=== PATIENT | female | born 1940 | race Caucasian/White ===

== ENCOUNTER 2016-10-23 16:27 | Emergency (ER) | payer OTHER ==
[~2016-10-23 16:27] MED LIST: LORazepam 2 MG/ML INJ IVP ONE
[2016-10-23] MEDS ORDERED: ONDANSETRON DISINTEGRATING 4 MG TAB PO ONE (16:38)
[2016-10-23] MEDS ORDERED: ONDANSETRON 4 MG/2 ML VIAL ONE ×2 (16:42→17:03)
[2016-10-23] MEDS ORDERED: MECLIZINE HCL 25 MG TAB ONE (17:03)
--- NOTE | 2016-10-23 17:04 | EDPHY ---
H & P Time Seen by Provider: 10/23/16 16:44 HPI/ROS: CHIEF COMPLAINT: vertigo HISTORY OF PRESENT ILLNESS: Patient is a 75-year-old female with a previous history of vertigo who presents to the emergency department with sudden onset dizziness. The patient was at a dance concert. She stated the room was warm. She felt flushed. She went to the car and had sudden onset dizziness. She felt as though the view was spinning. It was worse with head movement. She states I have trouble with my right ear. She has had previous episodes of vertigo. She had been seen approximately 6 months ago in [place] and had a negative MRI. She has ongoing tenderness that is gradually worsening in her right ear. She has associated nausea and vomiting today with her head movement and dizziness. She denies abdominal pain. No chest pain or shortness of breath. No fevers or chills. No recent trauma. REVIEW OF SYSTEMS: My complete review of systems is negative except as mentioned in the HPI. Past Medical/Surgical History: Includes vertigo, kidney disease Past surgical history: Noncontributory Social history: The patient is from [place]. She does not smoke. Smoking Status: Never smoked Physical Exam: 36.4, 140/89, 90, 18, 90% on room air GENERAL: Mild acute distress from nausea, alert. HEENT: Eyes normal to inspection, normal pharynx, no signs of dehydration. Horizontal nystagmus. TMs negative bilaterally. NECK: No thyromegaly, no lymphadenopathy, supple. RESPIRATORY: Clear to auscultation bilaterally, no rales, rhonchi or wheezing. CVS: Regular rate and rhythm, no rubs, murmurs, or gallops. ABDOMEN: Soft, nontender, nondistended, no organomegaly. BACK: Normal to inspection, no CVA tenderness. SKIN: Normal color, no rash, warm, dry. No pallor. EXTREMITIES: No pedal edema, no calf tenderness, no Homans sign or cords, no joint swelling. NEURO/PSYCH: Higher functions: Alert and Oriented x3. Normal speech and cognition. Normal mood and affect. Cranial nerves: Normal as tested. Cerebellar: Normal as tested. Good finger to nose, good [id number], normal gait. Peripheral exam: Normal motor exam. Normal sensation. Normal reflexes. Constitutional: Initial Vital Signs Temperature (C) 36.4 C 10/23/16 16:30 Heart Rate 90 10/23/16 16:30 Respiratory Rate 18 10/23/16 16:30 Blood Pressure 148/89 H 10/23/16 16:30 O2 Sat (%) 92 10/23/16 16:30 O2 Delivery Mode Nasal Cannula O2 (L/minute) 2 Allergies/Adverse Reactions: No Known Allergies Allergy (Unverified 10/23/16 16:29) Home Medications: Medication Instructions Recorded Clonidine 10/23/16 Losartan Potassium 10/23/16 Meclizine HCl [Meclizine HCl 25 mg 25 mg PO TID #11 tab 10/23/16 (RX,OTC)] Methylprednisone 10/23/16 amLODIPine BES/OLMESARTAN MED 10/23/16 Medical Decision Making ED Course/Re-evaluation: In the emergency department I discussed possible etiologies with the patient. An IV was placed. The patient was given meclizine 25 mg orally and Benadryl 12.5 mg IV. Laboratory studies, EKG and head CT were ordered. Pt given a second dose of zofran 4mg. Pt continues to feel dizzy with nausea and vomiting. Pt given ativan 1 mg Iv. 1800: The patient is doing much better. EKG was obtained. EKG shows normal sinus rhythm, normal rate, normal axis, normal intervals. There are no ST or T-wave abnormalities. EKG is normal as interpreted by me. [place] [address]. Creatinine is elevated 1.3. Head CT: Please refer the dictated report by Dr. Chandana Hedrick. No acute disease noted. 18 40: The patient feels better. I discussed all results with the patient and answered her questions. On repeat exam she had mild horizontal nystagmus. No other focal neurologic deficit noted. Patient was able to ambulate well. I gave the patient warnings prior to leaving. She will return with worsening symptoms. She understands limitations or imaging studies thus far. She does confirm that she recently had a negative MRI. She is given follow-up with ENT. She is given prescription for meclizine. Differential Diagnosis: My differential includes but is not limited to peripheral vertigo, central vertigo, ischemic CVA, hemorrhagic CVA, dissection, aneurysm, electrolyte abnormality, ACS, acute MA - Data Points Laboratory Results: Laboratory Results 10/23/16 16:45 10/23/16 16:45 10/23/16 16:45 WBC 16.71 H 10^3/uL (3.80-9.50) RBC 5.13 10^6/uL (4.18-5.33) Hgb 16.1 g/dL (12.6-16.3) Hct 48.3 H % (38.0-47.0) MCV 94.2 fL (81.5-99.8) MCH 31.4 pg (27.9-34.1) MCHC 33.3 g/dL (32.4-36.7) RDW 14.6 % (11.5-15.2) Plt Count 280 10^3/uL (150-400) MPV 9.2 fL (8.7-11.7) Neut % (Auto) 74.2 % (39.3-74.2) Lymph % (Auto) 15.7 % (15.0-45.0) [place] % (Auto) 7.7 % (4.5-13.0) Eos % (Auto) 0.2 L % (0.6-7.6) Baso % (Auto) 0.5 % (0.3-1.7) Nucleat RBC Rel Count 0.0 % (0.0-0.2) Absolute Neuts (auto) 12.41 H 10^3/uL (1.70-6.50) Absolute Lymphs (auto) 2.62 10^3/uL (1.00-3.00) Absolute Monos (auto) 1.28 H 10^3/uL (0.30-0.80) Absolute Eos (auto) 0.04 10^3/uL (0.03-0.40) Absolute Basos (auto) 0.08 10^3/uL (0.02-0.10) Absolute Nucleated RBC 0.00 10^3/uL (0-0.01) Immature Gran % 1.7 H % (0.0-1.1) Immature Gran # 0.28 H 10^3/uL (0.00-0.10) Sodium 144 mEq/L (134-144) Potassium 4.2 mEq/L (3.5-5.2) Chloride 109 mEq/L (97-110) Carbon Dioxide 22 mEq/l (22-31) Anion Gap 13 mEq/L (8-16) BUN 44 H mg/dL (7-23) Creatinine 1.3 H mg/dL (0.6-1.0) Estimated GFR 40 Glucose 110 H mg/dL (70-100) Calcium 10.5 H mg/dL (8.5-10.4) Troponin I < 0.012 ng/mL (0-0.034) Medications Given: Discontinued Medications Diphenhydramine HCl (Benadryl Injection) 12.5 mg IVP EDNOW ONE Stop: 10/23/16 17:06 Last Admin: 10/23/16 17:15 Dose: 12.5 mg Meclizine HCl (Meclizine Hcl) 25 mg PO EDNOW ONE Stop: 10/23/16 17:07 Last Admin: 10/23/16 17:15 Dose: 25 mg Ondansetron HCl (Zofran Odt) 4 mg PO EDNOW ONE Stop: 10/23/16 16:39 Last Admin: 10/23/16 16:51 Dose: 4 mg Departure - Departure Disposition: Home, Routine, Self-Care Clinical Impression: Dizziness Condition: Good Instructions: Vertigo (ED) Additional Instructions: Return with increasing her dizziness, headache, weakness, numbness or any other concerns. Referrals: Ramiro Alva MD [Medical Doctor] - 5-7 days, call for appt. Prescriptions: Meclizine HCl [Meclizine HCl 25 mg (RX,OTC)] 25 mg PO TID #11 tab
[2016-10-23] MEDS ORDERED: MECLIZINE HCL 25 MG TAB PO ONE (17:06)
[2016-10-23 17:10] LABS: % IMMATURE GRANULYOCYTES 1.7 % (0.0-1.1); ABSOLUTE IMMATURE GRANULOCYTES 0.28 10^3/uL (0.00-0.10); ADD DIFF? NO; ADD MORPH? NO; ADD SCAN? NO; ATYPICAL LYMPHOCYTE FLAG 0 (0-99); FRAGMENT RBC FLAG 0 (0-99); HEMATOCRIT 48.3 % (38.0-47.0); HEMOGLOBIN 16.1 g/dL (12.6-16.3); LEFT SHIFT FLG 10 (0-99); LIPEMIA HEMOLYSIS FLAG 80 (0-99); MEAN CELL HEMOGLOBIN 31.4 pg (27.9-34.1); MEAN CELL HEMOGLOBIN CONCENTR. 33.3 g/dL (32.4-36.7); MEAN CELL VOLUME 94.2 fL (81.5-99.8); MEAN PLATELET VOLUME 9.2 fL (8.7-11.7); PLATELET CLUMPS FLAG 0 (0-99); PLATELET COUNT 280 10^3/uL (150-400); RED BLOOD CELL COUNT 5.13 10^6/uL (4.18-5.33); RED CELL DISTRIBUTION WIDTH 14.6 % (11.5-15.2)
[2016-10-23 17:24] LABS: ANION GAP 13 mEq/L (8-16); CALCIUM 10.5 mg/dL (8.5-10.4); CARBON DIOXIDE 22 mEq/l (22-31); CHLORIDE 109 mEq/L (97-110); CREATININE 1.3 mg/dL (0.6-1.0); GLOMERULAR FILTRATION RATE 40; GLUCOSE 110 mg/dL (70-100); POTASSIUM 4.2 mEq/L (3.5-5.2); SODIUM 144 mEq/L (134-144)
[2016-10-23] MEDS ORDERED: LORazepam 2 MG/ML INJ ONE (17:24)
[2016-10-23 17:35] LABS: TROPONIN I < 0.012 ng/mL (0-0.034)
--- NOTE | 2016-10-23 17:59 | CPEKG ---
Heart Rate: 77 RR Interval: 779 P-R Interval: 188 QRSD Interval: 86 QT Interval: 384 QTC Interval: 435 P [place]: 34 QRS [place]: 34 T Wave [place]: 24 EKG Severity - BORDERLINE ECG - EKG Impression: SINUS RHYTHM EKG Impression: PROBABLE LEFT ATRIAL ABNORMALITY Electronically Signed By: Michelle Barry 23-Oct-2016 20:29:23
--- NOTE | 2016-10-23 18:37 | CT ---
CT Brain (Without Contrast) at 1818 hours History: Vertigo, right ear pain, dizziness. Comparison: None. Technique: Axial computed tomographic images of the brain without contrast. Dose reduction techniques were utilized. Findings: Ventricles, cisterns, and sulci are widened consistent with atrophy. No hydrocephalus, mid line shift/herniation, or epidural/subdural hematomas. No acute intraparenchymal hemorrhage or mass e ffect. Cerebrovascular atherosclerosis. Hypodensities in the white matter of bilateral cerebral hemis pheres. Bone windows demonstrate no displaced fractures. Paranasal sinuses and mastoid air cells are clear. Impression: 1. Mild atrophy. 2. No acute hemorrhage, hydrocephalus, or mass effect. 3. Cerebrovascular atherosclerosis. 4. No definite acute infarct. 5. Mild microvascular ischemic gliosis. 6. No evidence of fluid in the middle ears or mastoid air cells. No sinusitis 7. Consider MRI of the brain without and with contrast enhancement, if there is continued clinical co ncern. Findings and recommendations discussed with Emergency Department physician, Dr. Barry at 1830 hour, today. Final report concurs with initial preliminary interpretation.
[2016-10-23 19:45] VITALS: BP 128/71; O2SAT 92
[2016-10-23 20:28] VITALS: PULSE 77; RESP 16; TEMP 97.3
== END 2016-10-23 20:28 | disposition home or self-care (01) ==
DX: R42 Dizziness and giddiness (principal)
CPT/HCPCS: 70450; 93005; 96374; 96375; 99285; J2405; J1200